=== PATIENT | male | born 1995 | race African-American/Black ===

== ENCOUNTER 2017-11-13 16:29 | Emergency (ER) | payer SELFPAY ==
[~2017-11-13] VITALS: Ht 180.3 cm; Wt 93.0 kg
[2017-11-13 16:36] VITALS: BP_SYST 143
[2017-11-13 18:10] VITALS: BP_SYST 136
== END 2017-11-13 18:10 | disposition home or self-care (01) ==
LOC: SED 16:29
DX: S90.112A Contusion of left great toe without damage to nail, initial encounter (principal); X58.XXXA Exposure to other specified factors, initial encounter; Y93.61 Activity, american tackle football; Y92.321 Football field as the place of occurrence of the external cause; Y99.8 Other external cause status
CPT/HCPCS: 99284

== ENCOUNTER 2017-11-26 17:08 | Emergency (ER) | payer BC ==
[~2017-11-26] VITALS: Ht 182.9 cm; Wt 93.0 kg
[2017-11-26 17:15] VITALS: BP_SYST 140
[2017-11-26 18:14] VITALS: BP_SYST 130
== END 2017-11-26 18:14 | disposition home or self-care (01) ==
LOC: SED 17:08
DX: S43.51XA Sprain of right acromioclavicular joint, initial encounter (principal); R03.0 Elevated blood-pressure reading, without diagnosis of hypertension; X58.XXXA Exposure to other specified factors, initial encounter; Y93.61 Activity, american tackle football; Y92.89 Other specified places as the place of occurrence of the external cause; Y99.8 Other external cause status
CPT/HCPCS: 73000-TC; 99284